=== PATIENT | female | born 1970 | race Caucasian/White ===

== ENCOUNTER 2021-03-06 13:35 | Emergency (ER) | payer BC ==
[~2021-03-06] VITALS: Ht 162.6 cm; Wt 94.2 kg
[2021-03-06] MEDS ORDERED: IV NORMAL SALINE 1000ML BAG 1,000 ML IV SCH (16:15)
[2021-03-06] MEDS ORDERED: ONDANSETRON PF 4 MG/2 ML VIAL. IVP ONE (16:15)
[2021-03-06] MEDS ORDERED: fentaNYL PF VIAL 100 MCG/2 ML VIAL IVP ONE (16:15)
--- NOTE | 2021-03-06 16:20 | PHYS DOC ---
Past Medical History Past Surgical History: General Adult EDM: Chief Complaint: ABDOMINAL PAIN HPI: HPI: Patient is a 50-year-old female who presents to emergency department today for epigastric and left upper quadrant abdominal pain. She reports that the pain started yesterday morning after she had breakfast, following eating breakfast she noticed she had a "upset stomach" with belching. The upset stomach resolved and she was able to sleep last night and then she states she woke up this morning and felt fine and ate some beef jerky and the symptoms started again. Patient reports that she has similar symptoms like this every 4 to 6 weeks but is never been this bad. Patient rates her pain 6 out of 10. She took Advil at home for her pain. No radiation of pain. She reports nausea. She denies vomiting, diarrhea, blood in her stools, urinary symptoms, fever, alcohol use. Review of Systems: Review of Systems: Constitutional: See HPI GI: See HPI : See HPI Heart Score: C/O Chest Pain: N/A Risk Factors: Risk Factors: DM, Current or recent (<one month) smoker, HTN, HLP, family history of CAD, obesity. Risk Scores: Score 0 - 3: 2.5% MACE over next 6 weeks - Discharge Home Score 4 - 6: 20.3% MACE over next 6 weeks - Admit for Clinical Observation Score 7 - 10: 72.7% MACE over next 6 weeks - Early Invasive Strategies Current Medications: Current Medications Medications (Trade) Dose Ordered Sig/Shavon Start Time Stop Time Status Last Admin Dose Admin Fentanyl Citrate (Fentanyl 2ml Vial) 50 mcg 1X ONCE 03/06/21 16:15 03/06/21 16:16 UNV Ondansetron HCl (Zofran) 4 mg 1X ONCE 03/06/21 16:15 03/06/21 16:16 UNV Sodium Chloride 1,000 ml @ 1,000 mls/hr Q1H 03/06/21 16:15 03/06/21 17:14 UNV Physical Exam: PE: Constitutional: Well developed, well nourished, no acute distress, non-toxic appearance. [] HENT: Normocephalic, atraumatic, bilateral external ears normal, oropharynx moist, no oral exudates, nose normal. [] Eyes: PERRL, EOMI, conjunctiva normal, no discharge. [] Neck: Normal range of motion, no stridor Cardiovascular:Heart rate regular rhythm, no murmur [] Lungs & Thorax: Bilateral breath sounds clear to auscultation [] Abdomen: Bowel sounds normal, soft, tenderness with palpation to epigastric region and left upper quadrant, negative [place] sign, negative sag sign, no rebound tenderness, no rigidity, no guarding, no masses, no pulsatile masses. [] Skin: Warm, dry, no erythema, no rash. [] Back: No tenderness, no CVA tenderness. [] Extremities: No tenderness, no cyanosis, no clubbing, ROM intact, no edema. [] Neurologic: Alert and oriented X 3, normal motor function, normal sensory function, no focal deficits noted. [] Psychologic: Affect normal, judgement normal, mood normal. [] Current Patient Data: Labs: Laboratory Tests Test 03/06/21 15:45 03/06/21 16:50 Urine Collection Type Void Urine Color Yellow Urine Clarity Clear Urine pH 6.0 Urine Specific [place] 1.020 Urine Protein Negative mg/dL Urine Glucose (UA) Negative mg/dL Urine Ketones (Stick) Trace mg/dL Urine Blood Negative Urine Nitrite Negative Urine Bilirubin Negative Urine Urobilinogen Dipstick 0.2 mg/dL Urine Leukocyte Esterase Moderate Urine RBC 0 /HPF Urine WBC 20-40 /HPF Urine Squamous Epithelial Cells Few /LPF Urine Bacteria Few /HPF Urine Mucus Mod /LPF White Blood Count 11.0 x10^3/uL Red Blood Count 4.37 x10^6/uL Hemoglobin 13.7 g/dL Hematocrit 39.9 % Mean Corpuscular Volume 91 fL Mean Corpuscular Hemoglobin 31 pg Mean Corpuscular Hemoglobin Concent 34 g/dL Red Cell Distribution Width 13.2 % Platelet Count 352 x10^3/uL Neutrophils (%) (Auto) 81 % Lymphocytes (%) (Auto) 14 % Monocytes (%) (Auto) 4 % Eosinophils (%) (Auto) 0 % Basophils (%) (Auto) 0 % Neutrophils # (Auto) 8.9 x10^3/uL Lymphocytes # (Auto) 1.6 x10^3/uL Monocytes # (Auto) 0.4 x10^3/uL Eosinophils # (Auto) 0.0 x10^3/uL Basophils # (Auto) 0.0 x10^3/uL Sodium Level 138 mmol/L Potassium Level 3.9 mmol/L Chloride Level 104 mmol/L Carbon Dioxide Level 27 mmol/L Anion Gap 7 Blood Urea Nitrogen 12 mg/dL Creatinine 1.0 mg/dL Estimated GFR (Cockcroft-Gault) 58.2 BUN/Creatinine Ratio 12 Glucose Level 107 mg/dL Calcium Level 8.8 mg/dL Total Bilirubin 0.3 mg/dL Aspartate Amino Transf (AST/SGOT) 20 U/L Alanine Aminotransferase (ALT/SGPT) 33 U/L Alkaline Phosphatase 128 U/L Troponin I High Sensitivity < 4 ng/L Total Protein 7.8 g/dL Albumin 3.5 g/dL Albumin/Globulin Ratio 0.8 Lipase 76 U/L Current Medications Medications (Trade) Dose Ordered Sig/Shavon Route PRN Reason Start Time Stop Time Status Last Admin Dose Admin Sodium Chloride 1,000 ml @ 1,000 mls/hr Q1H IV 03/06/21 16:15 03/06/21 17:14 DC 03/06/21 16:55 Ondansetron HCl (Zofran) 4 mg 1X ONCE IVP 03/06/21 16:15 03/06/21 16:46 DC 03/06/21 16:56 Fentanyl Citrate (Fentanyl 2ml Vial) 50 mcg 1X ONCE IVP 03/06/21 16:15 03/06/21 16:46 DC 03/06/21 16:56 Iohexol (Omnipaque 300 Mg/ml) 75 ml 1X ONCE IV 03/06/21 17:15 03/06/21 17:17 DC 03/06/21 17:28 Vital Signs: Vital Signs Date Time Temp Pulse Resp B/P (MAP) Pulse Ox O2 Delivery O2 Flow Rate FiO2 03/06/21 15:53 98.3 70 18 129/66 (87) 98 Room Air 98.3 EKG: EKG: [] Radiology/Procedures: Radiology/Procedures: []PROCEDURE: CT ABD PELV W/ IV CONTRST ONLY Study: CT abdomen/pelvis with intravenous contrast Indication: Epigastric/left upper quadrant pain. Comparison: None. Technique: Helical CT imaging performed of the abdomen and pelvis after the intravenous administration of 75 cc contrast. Sagittal and coronal reformats were obtained. One or more of the following individualized dose reduction techniques were utilized for this examination: 1. Automated exposure control 2. Adjustment of the mA and/or kV according to patient size 3. Use of iterative reconstruction technique. Findings: Mild bibasilar atelectasis. The visualized mediastinal contents are unremarkable. Hepatic steatosis. Unremarkable gallbladder, biliary tree, pancreas, spleen and adrenal glands. Symmetric renal parenchymal enhancement. No hydronephrosis. Normal bladder wall thickness. Unremarkable uterus. No adnexal abnormality. No concerning colonic wall thickening or pericolonic inflammation. Unremarkable appendix. Course and caliber of the small bowel is within normal limits. Unremarkable stomach. Patent central portal veins and superior mesenteric vein. Nonaneurysmal aorta. No lymphadenopathy. No relevant volume free fluid or pneumoperitoneum. No acute or aggressive osseous process. Scattered degenerative changes are mostly mild. Straightening of lumbar lordosis. Mild disc space narrowing L2-L3 and a disc bulge at this level without evidence for significant central canal stenosis. Limbus vertebra at L3. Impression: 1. No acute abnormality is identified throughout the abdomen or pelvis. 2. Several chronic observations described in the body of the report to include hepatic steatosis. Electronically signed by: MARLYN TERRY MD (03/06/2021 6:05 PM) [facility] DICTATED and SIGNED BY: MARLYN TERRY MD DATE: 03/06/21 [id number] 0 Course & Med Decision Making: Course & Med Decision Making Pertinent Labs and Imaging studies reviewed. (See chart for details) [] Patient presents to the emergency department for epigastric and left upper quadrant pain with nausea. Patient reports that the pain is worsened with food. Work-up in the ER consisted of blood work, urinalysis and CT imaging of abdomen and pelvis. Patient treated with IV fluids, pain medication and nausea medication. CBC and CMP are unremarkable. Patient has urinary tract infection associated with an antibiotic. CT imaging of abdomen pelvis is unremarkable. Patient treated with a GI cocktail. Patient advised to take Pepcid [id number], increase fluids avoid bladder irritants and avoid any foods that may exacerbate GERD like spicy, greasy or fatty foods. She was advised to follow-up with her primary care provider. I discussed with patient all findings and diagnostic testing as well as the need to follow-up with PCP for further evaluation and treatment or return to the ER if any new or worsening symptoms. Strict return precautions were also discussed at length. Patient voiced understanding and agreement with the plan. Patient is hemodynamically stable at the time of disposition. Dragon Disclaimer: Dragon Disclaimer: This electronic medical record was generated, in whole or in part, using a voice recognition dictation system. Departure Departure Impression: Primary Impression: GERD (gastroesophageal reflux disease) Qualified Codes: K21.9 - Gastro-esophageal reflux disease without esophagitis Additional Impression: Urinary tract infection Qualified Codes: N30.00 - Acute cystitis without hematuria Disposition: HOME / SELF CARE / HOMELESS Condition: GOOD Referrals: NO PCP (PCP) Patient Instructions: Diet for Gastroesophageal Reflux Disease, Adult, Urinary Tract Infection Additional Instructions: You were seen in the emergency department for epigastric pain with nausea. Your blood work in the ER was unremarkable. CT imaging of your abdomen and pelvis shows no acute findings. Your urinalysis showed a urinary tract infection, this will be treated with an antibiotic. Please start and finish this antibiotic completely. Increase your fluids and avoid bladder irritants like caffeine, alcohol or sugary beverages. It is possible that you are experiencing GERD or gastritis due to certain foods that you are eating. I would advise you to take Pepcid [id number] daily. Avoid any foods that may exacerbate your symp toms like spicy, greasy or fatty foods. I would follow-up with your primary care provider tomorrow regarding your ER visit. Return to the emergency department if you develop worsening of your pain, intractable nausea or vomiting, high fevers refractory to treatment, blood in your stools or vomit or any new or worsening concerns. Scripts Famotidine (HEARTBURN PREVENTION) 20 Mg Tablet 20 MG PO DAILY for 14 Days, #14 TAB 0 Refills Prov: MICHAEL PUENTE APRN 03/06/21 Cephalexin (CEPHALEXIN) 500 Mg Tablet 1 TAB PO BID for 7 Days, #14 TAB 0 Refills Prov: MICHAEL PUENTE APRN 03/06/21 MICHAEL PUENTE APRN Mar 06, 2021 16:20
[2021-03-06 16:26] LABS: BILIRUBIN,URINE NEGATIVE (NEG); CLARITY,URINE CLEAR; COLOR,URINE YELLOW; NITRITE,URINE NEGATIVE (NEG); PROTEIN,URINE NEGATIVE (NEG-TRACE); UROBILINOGEN,URINE 0.2 mg/dL (0.2 mg/dL)
[2021-03-06 16:36] LABS: BACTERIA,URINE FEW /HPF (0-FEW)
[2021-03-06 16:37] LABS: RBC,URINE 0 /HPF (0-2); WBC,URINE 20-40 /HPF (0-4)
[2021-03-06 17:00] LABS: BASO % 0 % (0-3); EOS % 0 % (0-3); HEMATOCRIT 39.9 % (36.0-47.0); HEMOGLOBIN 13.7 g/dL (12.0-15.5); LYMPH # 1.6 x10^3/uL (1.0-4.8); LYMPH % 14 % (24-48); MEAN CORPUSCULAR HEMOGLOBIN 31 pg (25-35); MEAN CORPUSCULAR HGB CONC 34 g/dL (31-37); MEAN CORPUSCULAR VOLUME 91 fL (79-100); MONO # 0.4 x10^3/uL (0.0-1.1); MONO % 4 % (0-9); NEUT # 8.9 x10^3/uL (1.8-7.7); NEUT % 81 % (31-73); PLATELET COUNT 352 x10^3/uL (140-400); RED BLOOD COUNT 4.37 x10^6/uL (3.50-5.40); RED CELL DISTRIBUTION WIDTH 13.2 % (11.5-14.5)
[2021-03-06 17:13] LABS: CALCIUM 8.8 mg/dL (8.5-10.1); GFR 58.2; POTASSIUM 3.9 mmol/L (3.5-5.1)
[2021-03-06] MEDS ORDERED: IOHEXOL 300 MG/ML 100ML VIAL. IV ONE (17:15)
[2021-03-06 17:19] LABS: ALBUMIN 3.5 g/dL (3.4-5.0); ALBUMIN/GLOBULIN RATIO 0.8 (1.0-1.7); TOTAL BILIRUBIN 0.3 mg/dL (0.2-1.0); TOTAL PROTEIN 7.8 g/dL (6.4-8.2)
--- NOTE | 2021-03-06 18:07 | RAD ---
Study: CT abdomen/pelvis with intravenous contrast Indication: Epigastric/left upper quadrant pain. Comparison: None. Technique: Helical CT imaging performed of the abdomen and pelvis after the intravenous administratio n of 75 cc contrast. Sagittal and coronal reformats were obtained. One or more of the following individualized dose reduction techniques were utilized for this examinat ion: 1. Automated exposure control 2. Adjustment of the mA and/or kV according to patient size 3. Use of iterative reconstruction technique. Findings: Mild bibasilar atelectasis. The visualized mediastinal contents are unremarkable. Hepatic steatosis. Unremarkable gallbladder, biliary tree, pancreas, spleen and adrenal glands. Symmetric renal parenchymal enhancement. No hydronephrosis. Normal bladder wall thickness. Unremarkab le uterus. No adnexal abnormality. No concerning colonic wall thickening or pericolonic inflammation. Unremarkable appendix. Course and caliber of the small bowel is within normal limits. Unremarkable s tomach. Patent central portal veins and superior mesenteric vein. Nonaneurysmal aorta. No lymphadenopathy. No relevant volume free fluid or pneumoperitoneum. No acute or aggressive osseous process. Scattered de generative changes are mostly mild. Straightening of lumbar lordosis. Mild disc space narrowing L2-L3 and a disc bulge at this level without evidence for significant central canal stenosis. Limbus verte bra at L3. Impression: 1. No acute abnormality is identified throughout the abdomen or pelvis. 2. Several chronic observations described in the body of the report to include hepatic steatosis. Electronically signed by: MARLYN TERRY MD (03/06/2021 6:05 PM) [facility]
[2021-03-06] MEDS ORDERED: LIDO:MAALOX 1:1 20 ML SINGLE DOSE. SWSW ONE (18:15)
[2021-03-06] MEDS ORDERED: FAMO-69 PO (18:20)
[2021-03-06] MEDS ORDERED: CEPH500T PO (18:20)
[2021-03-06 18:32] VITALS: BP 113/63
== END 2021-03-06 18:35 | disposition home or self-care (01) ==
LOC: ER 13:35
DX: K21.9 Gastro-esophageal reflux disease without esophagitis (principal); N30.00 Acute cystitis without hematuria; Z98.890 Other specified postprocedural states
CPT/HCPCS: 36415; 74177; 80053; 81001; 83690; 84484; 85025; 87086; 87147; 96361; 96374; 96375; 99285; J2405; J3010; J7030; Q9967